=== PATIENT | male | born 1960 ===

== ENCOUNTER 2023-09-12 02:30 | Observation (INO) | payer OTHER ==
[2023-09-12 03:19] VITALS: BMI 29.0
[2023-09-12] MEDS ORDERED: Ondansetron PF 4 MG/2 ML Vial IVP PRN (03:48)
[2023-09-12] MEDS ORDERED: Labetalol HCl 100 MG/20 ML VIAL SLOW IVP PRN (03:48)
[2023-09-12] MEDS ORDERED: Acetaminophen 325 MG TAB PO PRN (03:48)
[2023-09-12] MEDS ORDERED: hydrALAZINE 20 MG/ML VIAL SLOW IVP PRN (03:48)
[2023-09-12 04:52] LABS: #Basophils 0.03 10x3/uL (0.0-0.2); %Basophils 0.6 % (0.0-1.0); %Eosinophils 1.7 % (0.0-10.0); %Monocytes 11.3 % (0.0-10.0); %Neutrophils 41.8 % (42.0-75.0); Hematocrit 34.2 % (42.0-52.0); Mean Corpuscular HGB CONC 32.2 g/dL (32.0-36.0); Mean Platelet Volume 10.4 fL (7.4-10.4); Platelet Count 180 10x3/uL (130-400); Red Blood Cell (RBC) Count 3.93 mill/uL (4.70-6.10)
[2023-09-12 05:25] LABS: Hemoglobin A1c 5.3 % (4.0-6.0)
[2023-09-12 05:51] LABS: Anion Gap 12 mmol/L (10-20); BUN (Urea Nitrogen) 20 mg/dL (8.4-25.7); Calc. Creatinine Clearance 95 mL/min (70-130); Calcium 8.2 mg/dL (7.8-10.44); Carbon Dioxide 20 mmol/L (23-31); Cardiac Risk 3.8 (Less than 4.5); Chloride 111 mmol/L (98-107); Cholesterol 124 mg/dl (< 200 Desired); Estimated GFR 77; Glucose 98 mg/dL (80-115); HDL Cholesterol 33 mg/dL (>60 Neg Risk); LDL Cholesterol, Calculated 70 mg/dL; Sodium 139 mmol/L (136-145); Triglycerides 107 mg/dL (Less than 150)
[2023-09-12] MEDS: Allopurinol 100 MG TAB PO SCH (10:32)
[2023-09-12] MEDS: Atorvastatin Calcium 10 MG TAB PO SCH (10:32)
[2023-09-12] MEDS: Atenolol 50 MG TAB PO SCH (10:32)
[2023-09-12] MEDS: Aspirin 81 mg Enteric Coated Tablet PO SCH (16:46)
[2023-09-12] MEDS: Temazepam 15 MG CAP PO PRN (20:45)
[2023-09-12] MEDS: Fenofibrate Nanocrystallized 145 MG TAB PO SCH (20:45)
[2023-09-13 06:27] LABS: #Basophils 0.03 10x3/uL (0.0-0.2); %Basophils 0.5 % (0.0-1.0); %Eosinophils 1.5 % (0.0-10.0); %Lymphocytes 33.9 % (21.0-51.0); %Monocytes 10.6 % (0.0-10.0); Hematocrit 36.1 % (42.0-52.0); Hemoglobin 11.6 g/dL (14.0-18.0); Mean Corpuscular HGB CONC 32.1 g/dL (32.0-36.0); Mean Corpuscular Hemoglobin 28.1 pg (27.0-31.0); Mean Corpuscular Volume 87.4 fL (78.0-98.0); Mean Platelet Volume 10.8 fL (7.4-10.4); Platelet Count 187 10x3/uL (130-400); RBC Distribution Width 16.7 % (11.5-14.5); Red Blood Cell (RBC) Count 4.13 mill/uL (4.70-6.10)
[2023-09-13 06:38] LABS: Anion Gap 13 mmol/L (10-20); BUN (Urea Nitrogen) 21 mg/dL (8.4-25.7); Calc. Creatinine Clearance 94 mL/min (70-130); Calcium 8.7 mg/dL (7.8-10.44); Carbon Dioxide 21 mmol/L (23-31); Chloride 105 mmol/L (98-107); Estimated GFR 76; Glucose 100 mg/dL (80-115); Potassium 3.9 mmol/L (3.5-5.1); Sodium 135 mmol/L (136-145)
[2023-09-13] MEDS: Atorvastatin Calcium 10 MG TAB PO SCH (10:04)
[2023-09-13] MEDS: Aspirin 81 mg Enteric Coated Tablet PO SCH (10:04)
[2023-09-13] MEDS: Atenolol 50 MG TAB PO SCH (10:04)
[2023-09-13] MEDS: Allopurinol 100 MG TAB PO SCH (10:05)
[2023-09-13] MEDS: Clopidogrel Bisulfate 75 MG TAB PO SCH (10:14)
[2023-09-13 18:43] VITALS: BP 139/77; TEMP 97.1
== END 2023-09-13 12:03 | disposition home or self-care (01) ==
LOC: 2SE 02:43
PROVIDERS: ADMIT Internal Medicine; ATTEND Hospitalist
PROC: B246ZZZ Ultrasonography of Right and Left Heart (ICD-10-PCS; principal; 2023-09-12)
DX: G45.9 Transient cerebral ischemic attack, unspecified (principal); I10 Essential (primary) hypertension; E78.00 Pure hypercholesterolemia, unspecified; M10.9 Gout, unspecified; Z88.6 Allergy status to analgesic agent; Z79.899 Other long term (current) drug therapy
CPT/HCPCS: 36415; 70551; 80048; 80061; 83036; 85025; 93306; 93880; G0378